=== PATIENT | female | born 1975 | race Caucasian/White ===

== ENCOUNTER 2022-04-30 20:34 | Emergency (ER) | payer BC ==
[~2022-04-30] VITALS: Ht 165.1 cm; Wt 71.7 kg
[2022-04-30 21:12] VITALS: BP 146/74
--- NOTE | 2022-04-30 21:24 | NUR ---
TO CHAIR C FOLLOWING TRIAGE
[2022-04-30] MEDS ORDERED: TETRACAINE 1% 2 ML AMP INJ ONE (22:00)
[2022-04-30] MEDS ORDERED: FLUORESCEIN OPTH STRIP 1 MG OP ONE (22:00)
--- NOTE | 2022-04-30 22:00 | NUR ---
PT C/O LEFT EYE SWELLING AND PAIN, PT SAID SHE RINSE HER CONTACT WITH CONTACT SOLUTION. DR SAMUEL AT BEDSIDE EXAMING PT.
--- NOTE | 2022-04-30 22:00 | NUR ---
PT MOVED TO ER BED 7
--- NOTE | 2022-04-30 22:02 | NUR ---
Dr. Biswas examining patient.
[2022-04-30] MEDS ORDERED: FLUORESCEIN OPTH STRIP 1 MG ONE (22:04)
[2022-04-30] MEDS ORDERED: NACL 0.9% 1,000 ML IV ONE (22:05)
[2022-04-30] MEDS ORDERED: TETRACAINE HCL/PF 0.5% OPTH 4 ML BTL ONE (22:24)
[2022-04-30] MEDS ORDERED: TETR15SO92 OP (22:40)
--- NOTE | 2022-04-30 22:48 | NUR ---
LEFT eye irrigated USING PJ LENS WITH 300 ml OF NS.Pt TOLERATED procedure.
[2022-04-30 23:00] VITALS: BP 132/65
--- NOTE | 2022-04-30 23:00 | NUR ---
Patient discharged with v/s stable. Written and verbal after care instructions given and explained. Patient alert, oriented and verbalized understanding of instructions. Ambulatory with steady gait. All questions addressed prior to discharge. ID band removed. Patient advised to follow up with PMD. Rx SENT TO PHARMACY. Patient educated on indication of medication including possible reaction and side effects. Opportunity to ask questions provided and answered.
== END 2022-04-30 23:00 | disposition home or self-care (01) ==
LOC: MED 20:34
DX: H10.12 Acute atopic conjunctivitis, left eye (principal); Z79.899 Other long term (current) drug therapy
CPT/HCPCS: 99284; J3490